=== PATIENT | male | born 1945 | race Caucasian/White ===

== ENCOUNTER 2020-05-04 12:31 | Inpatient (IN) | payer MEDICAID ==
[~2020-05-04] VITALS: Ht 170.2 cm; Wt 70.3 kg
[2020-05-04] VITALS (21 sets, daily range): BP systolic 141–211; BP diastolic 73–111
--- NOTE | 2020-05-04 12:42 | NUR ---
[place] FROM HOME TO ER BED 2. AAOX4. BREATHING RAPID, SOB. CAME INFOR SOB. SINCE YESTERDAY. PER PT, BREATHING IS MORE DIFFICULT WHEN HE IS LYING DOWN. PT IS A DIALYSIS PT. LAST DIALIZED ON MONDAY. PT WAS SUPPOSE TO HAVE ON TODAY BUT INSTEADY CALLED 911 BECAUSE OF HIS SOB. PT IS ON 2LPN VIA NC AND SATTING AT 95%. AWAITING MD FOR EVAL.
[2020-05-04 13:05] LABS: BASOPHILS # (AUTO) 0.1 /CMM (0.0-0.2); BASOPHILS % (AUTO) 0.9 % (0.0-2.0); EOSINOPHILS % (AUTO) 1.5 % (0.0-6.0); HEMATOCRIT 37 % (39-51); HEMOGLOBIN 12.1 g/dL (13.5-17.5); LYMPHOCYTES # (AUTO) 0.6 /CMM (0.8-4.8); LYMPHOCYTES % (AUTO) 9.4 % (20.0-44.0); MEAN CORPUSCULAR HGB CONC 33 g/dl (31.0-36.0); MEAN CORPUSCULAR VOLUME 93 fL (80-96); MONOCYTES # (AUTO) 0.8 /CMM (0.1-1.30); MONOCYTES % (AUTO) 11.1 % (2.0-12.0); NEUTROPHILS # (AUTO) 5.3 /CMM (1.8-8.9); NEUTROPHILS % (AUTO) 77.1 % (43.0-81.0); PLATELET COUNT (AUTO) 139 /CMM (150-450); RED BLOOD CELL COUNT(AUTO) 3.97 MIL/uL (4.5-6.0); WHITE BLOOD COUNT (AUTO) 6.9 K/uL (4.3-11.0)
[2020-05-04 13:17] LABS: CALCIUM, SERUM 10.1 mg/dL (8.5-10.1); CARBON DIOXIDE 24 mmol/L (21-32); CHLORIDE 102 mmol/L (98-107); GLUCOSE 115 mg/dL (74-106); POTASSIUM 5.4 mmol/L (3.5-5.1); SODIUM SERUM 138 mmol/L (136-145); UREA NITROGEN, BLOOD 66 mg/dL (7-18)
[2020-05-04 13:22] LABS: CREATININE 8.8 mg/dL (0.6-1.3)
[2020-05-04 13:29] LABS: ALANINE AMINOTRANSFERASE 13 U/L (12-78); ALBUMIN 3.8 g/dL (3.4-5.0); ALKALINE PHOSPHATASE 60 U/L (46-116); ASPARTATE AMINOTRANSFERASE 17 U/L (15-37); B-TYPE NATRIURETIC PEPTIDE 71615 PG/ML (0-125); BILIRUBIN,DIRECT 0.2 mg/dL (0.0-0.2); BILIRUBIN,TOTAL 0.7 mg/dL (0.2-1.0); TOTAL PROTEIN, SERUM 7.9 g/dL (6.4-8.2)
[2020-05-04] MEDS ORDERED: LOSA100T31 PO (13:50)
[2020-05-04] MEDS ORDERED: HYDR-3972 PO (13:50)
[2020-05-04] MEDS ORDERED: ATOR40TA PO (13:50)
[2020-05-04] MEDS ORDERED: AMLO10TA7 PO ×2 (13:50→15:08)
[2020-05-04] MEDS ORDERED: SEVE800T28 PO (13:50)
[2020-05-04] MEDS ORDERED: ASPI-1169 PO (13:50)
[2020-05-04] MEDS ORDERED: NTG 50 MG/D5W250 ML BOTTL 250 ML IV STA (14:36)
--- NOTE | 2020-05-04 14:53 | NUR ---
MOVE SHEET SUBMITTED AND CALLED FOR TELE BED.
[2020-05-04] MEDS ORDERED: SODIUM POLYSTYRENE SULFONATE 15 G/60 ML BOTTLE ONE ×2 (14:54→15:07)
[2020-05-04] MEDS ORDERED: INSULIN REGULAR, HUMAN 100 UNIT/ML 10 ML VIAL ONE (14:55)
[2020-05-04] MEDS ORDERED: DEXTROSE 50%-WATER 50 ML DISP.SYRIN ONE (14:55)
[2020-05-04] MEDS ORDERED: NTG 50 MG/D5W250 ML BOTTL 250 ML IV ONE (14:55)
[2020-05-04] MEDS ORDERED: LOSA1TAB39 PO (14:58)
[2020-05-04] MEDS ORDERED: KETO5DRO39 RIGHTEYE (14:58)
[2020-05-04] MEDS ORDERED: PRED5DRO16 OP (14:58)
[2020-05-04] MEDS ORDERED: METO25TA6 PO (14:58)
[2020-05-04] MEDS ORDERED: DEXTROSE 50%-WATER 50 ML DISP.SYRIN IVP ONE (15:00)
[2020-05-04] MEDS ORDERED: INSULIN REGULAR, HUMAN 100 UNIT/ML 10 ML VIAL IV ONE (15:00)
[2020-05-04] MEDS ORDERED: SODIUM POLYSTYRENE SULFONATE 15 G/60 ML BOTTLE PO ONE (15:00)
[2020-05-04] MEDS ORDERED: CINA60TA PO (15:08)
[2020-05-04] MEDS ORDERED: HYDR-4077 PO (15:08)
[2020-05-04] MEDS ORDERED: OMEP20TA5 PO (15:08)
[2020-05-04] MEDS ORDERED: FOLI0.8C PO (15:08)
--- NOTE | 2020-05-04 15:11 | NUR ---
MIAHOneida HUDSON [phone]
--- NOTE | 2020-05-04 15:15 | NUR ---
[facility] CALLED ITS DR. SKAGGS
--- NOTE | 2020-05-04 15:42 | NUR ---
COVID SWAB DONE AND SENT TO LAB
--- NOTE | 2020-05-04 15:55 | NUR ---
CALLED [facility] AGAIN DR. HURT
--- NOTE | 2020-05-04 16:09 | NUR ---
LAB CALLED COVID (-) NEG.
--- NOTE | 2020-05-04 16:34 | NUR ---
Report given to Kaleb RN for ICU admission
--- NOTE | 2020-05-04 17:05 | NUR ---
Transferred to ICU via [facility]
--- NOTE | 2020-05-04 17:10 | NUR ---
ICU/RN: RECEIVED PT FROM ER. PT ABLE TO WALK TO BED. ALERT, AWAKE, FOLLOWS COMMANDS. ON 2LITERS NASAL CANULA, NO ACUTE DISTRESS NOTED. SINUS ON TELE. NITROGLYCERINE DRIP INFUSING AT 10MCG TO MAINTAIN SBP<180. PIVS PATENT AND INTACT, NO S/S OF INFECTION OR INFILTRATION NOTED. CONSENT FOR HD IN CHART, PT SCHEDULED FOR HD TODAY. ALL NEEDS WILL BE ATTENDED TO, SAFETY MEASURES TAKEN, BED IN LOW POSITION, SIDE RAILS UP, CALL LIGHT WITHIN REACH. WILL CONTINUE TO MONITOR.
[2020-05-04] MEDS ORDERED: ACETAMINOPHEN 325 MG TABLET PO PRN (18:00)
[2020-05-04] MEDS ORDERED: ZOLPIDEM TARTRATE 5 MG TABLET PO PRN (18:00)
[2020-05-04] MEDS ORDERED: ONDANSETRON HCL/PF 4 MG/2 ML VIAL IVP PRN (18:00)
[2020-05-04] MEDS ORDERED: hydrALAZINE HCL 50 MG TABLET PO SCH (18:00)
[2020-05-04] MEDS ORDERED: Z GUARD REMEDY 2 OZ OINT TP PRN (18:00)
[2020-05-04] MEDS ORDERED: HYDROCODONE/APAP 5/325MG 1 EACH TABLET PO PRN ×2 (18:00)
[2020-05-04] MEDS: SEVELAMER CARBONATE 800 MG TABLET PO SCH (18:26)
[2020-05-04] MEDS: AMLODIPINE BESYLATE 10 MG TABLET PO SCH (18:27)
[2020-05-04] MEDS ORDERED: NITROGLYCERIN 100 MG in IV D5W 230 ML IV PRN (18:30)
[2020-05-04] MEDS ORDERED: NITROGLYCERIN IV PRN (19:00)
[2020-05-04] MEDS ORDERED: D5W IV PRN (19:00)
--- NOTE | 2020-05-04 19:26 | NUR ---
ICU/RN ENDING NOTES,AM REPORT ENDORSED TO NIGHT NURSE FOR BIGG. HD ONGOING. UNABLE TO OBTAIN NIBP, MANUALLY DONE. PT ALERT, NO ACUTE DISTRESS NOTED. SINUS ON TELE. ALL NEEDS ATTENDED TO, SAFETY MEASURES TAKEN, BED IN LOW POSITION SIDE RAILS UP, CALL LIGHT WITHIN REACH. WILL CONTINUE CARE.
--- NOTE | 2020-05-04 19:30 | NUR ---
SUPERIOR COURT JUSTICE INITIAL SHIFT NOTES RECEIVED PATIENT IN BED, AWAKE, A/O X4, ABLE TO VERBALIZE NEEDS. PATIENT CURRENTLY UNDERGOING HD TREATMENT. ON O2 VIA NASAL CANNULA @ 2LPM, TOLERATING WELL. PATIENT STATES "IM BREATHING A LOT BETTER NOW. STILL NOT GOOD, BUT BETTER." BEDSIDE [place] MAOR[place] READS SINUS RHYTHM WITH BBB AND INVERTED TWAVE, HR 82 BPM AT THIS TIME. RIGHT FOREARM #20G PATENT AND INTACT, RUNNING NITROGLYCERIN GTT, CURRENTLY @ 15MCG/MIN, WILL MONITOR AND TITRATE ACCORDINGLY. RIGHT CHEST WALL STEPHANIE CATH DRESSING CLEAN AND DRY, NO BLEEDING NOTED AT SITE. ELOY NOTED WITH AV FISTULA, WITH +BRUIT, +THRILL, BUT NOT YET MATURED PER REPORT FROM DAY NURSE, RIGHT STEPHANIE CATHETER CURRENTLY IN USE FOR HD. NO ISOLATION, COVID NEGATIVE. HOB KEPT ELEVATED IN SEMIFOWLER'S. WILL MONITOR CLOSELY
--- NOTE | 2020-05-04 20:00 | NUR ---
COMPUTER CUSTOMER SUPPORT SPECIALIST NOTES HD COMPLETED, 3LITERS REMOVED PER HD NURSE.
[2020-05-04] MEDS: ATORVASTATIN 40 MG TABLET PO SCH (21:46)
[2020-05-04] MEDS: CINACALCET HCL 30 MG TABLET PO SCH (21:46)
[2020-05-04] MEDS: prednisoLONE ACET 1% OPHT DROP 5 ML BOTTLE OP SCH (21:47)
--- NOTE | 2020-05-04 22:00 | NUR ---
AWNING MAKER NOTES NITROGLYCERIN DRIP TITRATED OFF, WILL MONITOR VITALS CLOSELY .
[2020-05-05] VITALS (34 sets, daily range): BP systolic 95–206; BP diastolic 65–102
--- NOTE | 2020-05-05 02:08 | NUR ---
LUNCH TRUCK DRIVER NOTES BP 206/96, NITROGLYCERIN DRIP RESUMED/RESTARTED @ 5MCG/MIN, GOAL TO KEEP SBP < 180
[2020-05-05 04:09] LABS: BASOPHILS # (AUTO) 0.1 /CMM (0.0-0.2); EOSINOPHILS % (AUTO) 3.8 % (0.0-6.0); HEMATOCRIT 36 % (39-51); HEMOGLOBIN 12.1 g/dL (13.5-17.5); LYMPHOCYTES # (AUTO) 1.2 /CMM (0.8-4.8); LYMPHOCYTES % (AUTO) 18.2 % (20.0-44.0); MEAN CORPUSCULAR HGB CONC 33 g/dl (31.0-36.0); MEAN CORPUSCULAR VOLUME 92 fL (80-96); MONOCYTES # (AUTO) 0.9 /CMM (0.1-1.30); MONOCYTES % (AUTO) 14.1 % (2.0-12.0); NEUTROPHILS % (AUTO) 62.9 % (43.0-81.0); PLATELET COUNT (AUTO) 138 /CMM (150-450); RED BLOOD CELL COUNT(AUTO) 3.96 MIL/uL (4.5-6.0); WHITE BLOOD COUNT (AUTO) 6.4 K/uL (4.3-11.0)
[2020-05-05 04:31] LABS: CALCIUM, SERUM 9.8 mg/dL (8.5-10.1); CARBON DIOXIDE 26 mmol/L (21-32); CHLORIDE 103 mmol/L (98-107); CREATININE 7.4 mg/dL (0.6-1.3); GLUCOSE 86 mg/dL (74-106); MAGNESIUM 2.9 mg/dL (1.8-2.4); POTASSIUM 4.5 mmol/L (3.5-5.1); SODIUM SERUM 141 mmol/L (136-145); UREA NITROGEN, BLOOD 54 mg/dL (7-18)
[2020-05-05 04:32] LABS: CHOLESTEROL 132 mg/dL (<200); HDL CHOLESTEROL 39 mg/dL (40-60); LDL 80 mg/dL (0-99); THYROID STIMULATING HORMONE 1.089 uIU/mL (0.358-3.74); TRIGLYCERIDES 82 mg/dL (30-150)
[2020-05-05 05:34] LABS: B-TYPE NATRIURETIC PEPTIDE 71062 PG/ML (0-125)
--- NOTE | 2020-05-05 07:00 | NUR ---
TAPE FOLDING MACHINE OPERATOR CLOSING NOTES PATIENT RESTING IN BED, APPEARS COMFORTABLE, DENIES ANY PAIN OR DISCOMFORT, TOLERATING O2 VIA NC @ 2LPM. REMAINS ON NITROGLYCERIN DRIP, TITRATED UP TO 65 MCG/MIN. ALL DUE MEDS ADMINISTERED ORDERED, ALL NEEDS MET AT THIS TIME. WILL ENDORSE THE PATIENT TO THE AM SHIFT NURSE FOR BIGG
[2020-05-05] MEDS: PANTOPRAZOLE 40 MG TABLET.DR PO SCH (08:44)
[2020-05-05] MEDS: ASPIRIN 81 MG TAB.CHEW PO SCH (08:44)
[2020-05-05] MEDS: SEVELAMER CARBONATE 800 MG TABLET PO SCH ×3 (08:44→18:09)
[2020-05-05] MEDS: prednisoLONE ACET 1% OPHT DROP 5 ML BOTTLE OP SCH ×4 (08:45→20:38)
[2020-05-05] MEDS: hydrALAZINE HCL 50 MG TABLET PO SCH ×3 (08:47→20:49)
[2020-05-05] MEDS: AMLODIPINE BESYLATE 10 MG TABLET PO SCH (08:47)
[2020-05-05] MEDS: HEPARIN SODIUM, PORCINE 5000 UNITS/1 ML VIAL SQ SCH ×2 (09:53→20:36)
[2020-05-05] MEDS: NITROGLYCERIN 30 GM TUBE TP SCH ×2 (12:00→20:38)
--- NOTE | 2020-05-05 15:20 | NUR ---
rn notes patient transferred from icu, report received by icu nurse Jose RN a/o x3 Spanish speaker. patient tele monitor on SR 82, pt on 2L of oxygen via n/c saturating at 97& at this time, pt on renal diet, pt has R AC 20', R forearm 20', R chest wall Juancho cath, ELOY AV fistula new not matured at this time, pt noted with right upper extremity scabs, v/s taken: Bp 127/87, Hr 80, RR 19, Temp 97.8, O2 97% n/c, bed locked and in lowest position, call light within reach and functioning.
--- NOTE | 2020-05-05 18:34 | NUR ---
LICENSED SALES ASSISTANT CLOSING NOTE PT IS IN BED, AWAKE, ALERT AND ORIENTED X3, PT ON 2L OF OXYGEN VIA N/C SATURATING AT 97%, NO DISTRESS NOTED AT THIS TIME, PT HAS A ELOY FISTULA, PT'S V/S WITHIN NORMAL RANGE, PT ON TELE MONITORING WITH SR NOTED AT THIS TIME, CALL LIGHT WITHIN REACH AND FUNCTIONING, BED LOCKED AND IN LOWEST POSITION, PT HAS CHEST X-RAY IN AM TOMORROW, WILL ENDORSE TO 7PM SHIFT NURSE TO CONTINUE PLAN OF CARE
[2020-05-05] MEDS: CINACALCET HCL 30 MG TABLET PO SCH (21:02)
[2020-05-05] MEDS: ATORVASTATIN 40 MG TABLET PO SCH (21:02)
[2020-05-06] VITALS: BP 139/73
[2020-05-06 04:00] VITALS: BP 123/63
[2020-05-06] MEDS: hydrALAZINE HCL 50 MG TABLET PO SCH ×3 (05:18→20:36)
--- NOTE | 2020-05-06 07:10 | NUR ---
RN OPENING NOTE: Received patient in bed and asleep. Appears comfortable and relaxed. On cont o2 via NC @ 3lpm being tolerated well. No SOB and not in respiratory distress. Tele monitor showing SR in the 90s. No pain noted on patient. Iv sites clean, dry, patent and intact. ELOY AV fistula intact and secure, RAC perma-cath noted. Call light in reach, bed locked, low and at semi-bey's position. Side rails up x3. Safety ensured and observed. Will continue to monitor.
[2020-05-06] MEDS: PANTOPRAZOLE 40 MG TABLET.DR PO SCH (07:46)
[2020-05-06] MEDS: SEVELAMER CARBONATE 800 MG TABLET PO SCH ×3 (07:46→18:00)
[2020-05-06 08:00] VITALS: BP_SYST 120; BP_SYST 145; BP_DIAS 67; BP_DIAS 69
--- NOTE | 2020-05-06 08:15 | NUR ---
RN Will check the next dialysis appointment for patient prior to doing the CT CHEST W/IV CONTRAST. Please call radiology at ext. [phone] when ready.
[2020-05-06] MEDS: prednisoLONE ACET 1% OPHT DROP 5 ML BOTTLE OP SCH ×4 (08:40→21:17)
[2020-05-06] MEDS: ASPIRIN 81 MG TAB.CHEW PO SCH (08:40)
[2020-05-06] MEDS: AMLODIPINE BESYLATE 10 MG TABLET PO SCH (08:40)
[2020-05-06] MEDS: NITROGLYCERIN 30 GM TUBE TP SCH ×2 (08:41→21:17)
[2020-05-06] MEDS: HEPARIN SODIUM, PORCINE 5000 UNITS/1 ML VIAL SQ SCH ×2 (08:44→21:06)
[2020-05-06 09:35] LABS: ALANINE AMINOTRANSFERASE 10 U/L (12-78); ALBUMIN 3.4 g/dL (3.4-5.0); ALKALINE PHOSPHATASE 43 U/L (46-116); ASPARTATE AMINOTRANSFERASE 14 U/L (15-37); BILIRUBIN,TOTAL 0.8 mg/dL (0.2-1.0); CALCIUM, SERUM 9.4 mg/dL (8.5-10.1); CARBON DIOXIDE 24 mmol/L (21-32); CHLORIDE 104 mmol/L (98-107); CREATININE 7.3 mg/dL (0.6-1.3); GLUCOSE 87 mg/dL (74-106); MAGNESIUM 2.6 mg/dL (1.8-2.4); PHOSPHORUS 5.6 mg/dL (2.5-4.9); POTASSIUM 3.8 mmol/L (3.5-5.1); SODIUM SERUM 142 mmol/L (136-145); TOTAL PROTEIN, SERUM 7.2 g/dL (6.4-8.2); UREA NITROGEN, BLOOD 48 mg/dL (7-18)
--- NOTE | 2020-05-06 09:40 | NUR ---
RN NOTE: Consent form for CT chest with contrast as well as dye administration consent was obtained from patient. Forms were signed.
[2020-05-06 09:43] LABS: BASOPHILS % (AUTO) 0.6 % (0.0-2.0); EOSINOPHILS % (AUTO) 2.1 % (0.0-6.0); HEMATOCRIT 34 % (39-51); LYMPHOCYTES # (AUTO) 0.7 /CMM (0.8-4.8); LYMPHOCYTES % (AUTO) 11.5 % (20.0-44.0); MEAN CORPUSCULAR HGB CONC 32 g/dl (31.0-36.0); MEAN CORPUSCULAR VOLUME 92 fL (80-96); MONOCYTES # (AUTO) 0.8 /CMM (0.1-1.30); MONOCYTES % (AUTO) 14.5 % (2.0-12.0); NEUTROPHILS # (AUTO) 4.1 /CMM (1.8-8.9); NEUTROPHILS % (AUTO) 71.3 % (43.0-81.0); PLATELET COUNT (AUTO) 118 /CMM (150-450); RED BLOOD CELL COUNT(AUTO) 3.72 MIL/uL (4.5-6.0); WHITE BLOOD COUNT (AUTO) 5.8 K/uL (4.3-11.0)
[2020-05-06 09:46] LABS: IRON, SERUM 26 ug/dl (50-175); TOTAL IRON BINDING CAPACITY 189 ug/dl (250-450)
--- NOTE | 2020-05-06 10:02 | NUR ---
WAITING FOR CONSENT TO BE DONE BY RN @1002 YW
[2020-05-06 12:12] LABS: HEPATITIS Be AB Negative (Negative)
[2020-05-06 13:35] LABS: FERRITIN 815 ng/mL (8-388)
[2020-05-06 16:00] VITALS: BP 140/78
--- NOTE | 2020-05-06 19:27 | NUR ---
RN CLOSING NOTE: No acute changes noted on shift. Patient is in bed and asleep. Appears comfortable and relaxed. On cont o2 via NC @ 3lpm being tolerated well. No SOB and not in respiratory distress. No pain noted on patient. Iv sites clean, dry, patent and intact. ELOY AV fistula intact and secure, RAC perma-cath noted. CT chest with contrast done today and HD done today with 2300 output. Call light in reach, bed locked, low and at semi-bey's position. Side rails up x3. Safety ensured and observed. Endorsed to AMBER Peguero for BIGG.
[2020-05-06 20:00] VITALS: BP 116/84
--- NOTE | 2020-05-06 20:00 | NUR ---
ms antonio initial notes received report from am nurse and saw pt sitting in bed eating some of his foods. denies any pain or any discomfort. aware where he at and how to used the call light system .kept him warm and comfortable at all times. place call light at reach.
[2020-05-06] MEDS: CINACALCET HCL 30 MG TABLET PO SCH (21:13)
[2020-05-06] MEDS: ATORVASTATIN 40 MG TABLET PO SCH (21:13)
--- NOTE | 2020-05-07 02:49 | NUR ---
ms sourcing associate notes Pt sleeping comfortably in bed without any distress noted. respiration even and non-labored. kept him warm and comfortable at all times. place call light at reach.
[2020-05-07] MEDS: hydrALAZINE HCL 50 MG TABLET PO SCH ×3 (05:22→20:26)
--- NOTE | 2020-05-07 07:02 | NUR ---
MS WALLPAPER INSPECTOR CLOSING NOTES PT BACK TO SLEEP AFTER I GAVE HIS MORNING MEDS. STABLE SIMONA THE NIGHT AND ALL DUE MEDS GIVEN ALL NEEDS MET. SLEPT WELL. NO SIGNS OF ANY DISTRESS NOTED.DENIES ANY PAIN OR ANY DISCOMFORT. KEPT HIM WARM AND COMFORTABLE AT ALL TIMES. ENDORSE TO AM NURSE FOR CONTINUITY OF CARE.
[2020-05-07] MEDS: PANTOPRAZOLE 40 MG TABLET.DR PO SCH (07:33)
--- NOTE | 2020-05-07 07:50 | NUR ---
RN OPENING NOTE Patient is sitting up in bed, A/O x3, showing no signs of acute distress or SOB, saturating >95% on 2L NC. IV lines in the RFA#20g, RAC#20g, clean and intact s/l. RUC perma-cath noted as well as ELOY AV fistula. S/P HD on 04/27 with 2000cc out. Patient has no complaints at this time. Bed is in lowest position, side rails x3 in upright position, call light is within reach, fall safety and aspiration precautions enforced. Will continue with plan of care.
[2020-05-07 08:00] VITALS: BP 116/59
[2020-05-07] MEDS: NITROGLYCERIN 30 GM TUBE TP SCH ×2 (08:11→21:00)
[2020-05-07] MEDS: AMLODIPINE BESYLATE 10 MG TABLET PO SCH (08:12)
[2020-05-07] MEDS: ASPIRIN 81 MG TAB.CHEW PO SCH (08:12)
[2020-05-07] MEDS: SEVELAMER CARBONATE 800 MG TABLET PO SCH ×3 (08:12→17:33)
[2020-05-07] MEDS: HEPARIN SODIUM, PORCINE 5000 UNITS/1 ML VIAL SQ SCH ×2 (08:13→20:29)
[2020-05-07] MEDS: prednisoLONE ACET 1% OPHT DROP 5 ML BOTTLE OP SCH ×4 (08:20→20:26)
[2020-05-07] MEDS ORDERED: HYDR-4077 PO (15:52)
[2020-05-07 16:00] VITALS: BP 118/70
--- NOTE | 2020-05-07 18:30 | NUR ---
RN CLOSING NOTE Patient is sitting up in bed, A/O x3, showing no signs of acute distress or SOB, saturating >95% on 2L NC. IV lines in the right hand #20g, RAC#20g, clean and intact s/l. RUC perma-cath noted as well as ELOY AV fistula. S/P HD on 05/06 with 2000cc out. All patient needs met, all due medications given, patient kept clean and dry throughout the shift. Bed is in lowest position, side rails x3 in upright position, call light is within reach, fall safety and aspiration precautions enforced. Will endorse to shift boss.
--- NOTE | 2020-05-07 19:50 | NUR ---
MS RN OPENING NOTES Patient received resting in bed a/o x 3. On 2L of O2 with breathing even and unlabored, no sob noted. No signs of acute distress. No complaints of pain or discomfort. IV located on R AC #20, R hand #20, RUC permacath, and ELOY AV fistula noted. Safety precautions in place with bed in lowest position, call light within reach, breaks on, side rails up. Will continue to monitor throughout the night.
[2020-05-07 20:00] VITALS: BP 130/61
[2020-05-07 20:51] VITALS: BP 130/61
[2020-05-07] MEDS: ATORVASTATIN 40 MG TABLET PO SCH (21:46)
[2020-05-07] MEDS: CINACALCET HCL 30 MG TABLET PO SCH (21:46)
[2020-05-08] MEDS: hydrALAZINE HCL 50 MG TABLET PO SCH ×2 (04:48→12:43)
--- NOTE | 2020-05-08 06:44 | NUR ---
MS RN CLOSING NOTES Patient resting in bed a/o x 3. On 2L of O2 with breathing even and unlabored, no sob noted. No signs of acute distress. No complaints of pain or discomfort. IV located on R AC #20, R hand #20, RUC permacath, and ELOY AV fistula noted. Safety precautions in place with bed in lowest position, call light within reach, breaks on, side rails up. All needs attended to. Patient kept clean and dry. Will endorse to oncoming shift about elder.
[2020-05-08] MEDS: PANTOPRAZOLE 40 MG TABLET.DR PO SCH (07:30)
--- NOTE | 2020-05-08 07:30 | NUR ---
RN MS NOTES PT IN BED, ASLEEP, EASILY AROUSABLE, ALERT AND ORIENTED, DENIES PAIN, RESPIRATIONS NORMAL, CALL LIGHT WITHIN REACH.
[2020-05-08 07:41] LABS: CALCIUM, SERUM 8.9 mg/dL (8.5-10.1); CARBON DIOXIDE 26 mmol/L (21-32); CHLORIDE 98 mmol/L (98-107); GLUCOSE 106 mg/dL (74-106); MAGNESIUM 2.6 mg/dL (1.8-2.4); PHOSPHORUS 5.5 mg/dL (2.5-4.9); POTASSIUM 4.7 mmol/L (3.5-5.1); SODIUM SERUM 134 mmol/L (136-145); UREA NITROGEN, BLOOD 56 mg/dL (7-18)
[2020-05-08 07:45] LABS: CREATININE 8.6 mg/dL (0.6-1.3)
[2020-05-08 07:48] LABS: BASOPHILS % (AUTO) 0.9 % (0.0-2.0); EOSINOPHILS % (AUTO) 5.8 % (0.0-6.0); HEMATOCRIT 32 % (39-51); HEMOGLOBIN 10.5 g/dL (13.5-17.5); LYMPHOCYTES % (AUTO) 20.7 % (20.0-44.0); MEAN CORPUSCULAR HGB CONC 33 g/dl (31.0-36.0); MEAN CORPUSCULAR VOLUME 91 fL (80-96); MONOCYTES # (AUTO) 0.8 /CMM (0.1-1.30); MONOCYTES % (AUTO) 15.9 % (2.0-12.0); NEUTROPHILS # (AUTO) 2.8 /CMM (1.8-8.9); NEUTROPHILS % (AUTO) 56.7 % (43.0-81.0); PLATELET COUNT (AUTO) 120 /CMM (150-450); RED BLOOD CELL COUNT(AUTO) 3.51 MIL/uL (4.5-6.0); WHITE BLOOD COUNT (AUTO) 4.9 K/uL (4.3-11.0)
[2020-05-08] MEDS: SEVELAMER CARBONATE 800 MG TABLET PO SCH ×2 (08:00→12:26)
[2020-05-08 08:21] VITALS: BP 123/66
[2020-05-08] MEDS: prednisoLONE ACET 1% OPHT DROP 5 ML BOTTLE OP SCH ×2 (09:00→12:34)
[2020-05-08] MEDS: ASPIRIN 81 MG TAB.CHEW PO SCH ×2 (09:00→12:26)
[2020-05-08] MEDS: NITROGLYCERIN 30 GM TUBE TP SCH (09:00)
[2020-05-08] MEDS: AMLODIPINE BESYLATE 10 MG TABLET PO SCH (09:00)
--- NOTE | 2020-05-08 09:00 | NUR ---
RN MS NOTES NITROL NOT GIVEN, PT WITH SCHEDULED CTCA AND HD TODAY.
--- NOTE | 2020-05-08 09:00 | NUR ---
RN MS NOTES PT REFUSED AM MEDS, STATED THAT HE WOULD LIKE TO SLEEP FOR NOW.
--- NOTE | 2020-05-08 09:47 | NUR ---
WOUND CARE CONSULT: PT REFUSED SKIN ASSESSMENT. PT NOTED TO BE INDEPENDENT WITH BED MOBILITY AND IS AMBULATORY WITH ASSISTANCE PER NURSING STAFF. WILL SEE PRN.
[2020-05-08] MEDS ORDERED: METOPROLOL TARTRATE INJ 5 MG/5 ML AMPUL ONE (10:57)
[2020-05-08] MEDS ORDERED: NITROGLYCERIN 0.4 MG/TAB BOTTLE ONE (10:57)
[2020-05-08] MEDS ORDERED: NITROGLYCERIN 0.4 MG/TAB BOTTLE SL ONE (11:00)
[2020-05-08] MEDS ORDERED: METOPROLOL TARTRATE INJ 5 MG/5 ML AMPUL IVP PRN (11:00)
--- NOTE | 2020-05-08 11:34 | NUR ---
AMBER MS NOTES PT BACK FROM [facility] VIA WHEELCHAIR, TOLERATED PROCEDURE WELL.
[2020-05-08] MEDS: HEPARIN SODIUM, PORCINE 5000 UNITS/1 ML VIAL SQ SCH (12:32)
[2020-05-08 12:43] VITALS: BP 116/62
--- NOTE | 2020-05-08 16:00 | NUR ---
RN MS NOTES PT COMPLETED DIALYSIS OUTPUT OF 2700ML AND TOLERATED WELL. NO BLEEDING NOTED TO CATHETER RIGHT CHEST.
--- NOTE | 2020-05-08 17:15 | NUR ---
MATHEMATICAL STATISTICIAN NOTE PT ALERT AND RESPONSIVE WITH NO COMPLAINT OF PAIN OR DISCOMFORT. RESPIRATION IS EVEN AND EASY WITH NO SOB. DISCHARGE ORDERS RECEIVED. MEDICATION INSTRUCTIONS PROVIDED TO PATIENT AND ABLE TO VERBALIZE UNDERSTANDING. BELONGINGS CHECKED, AND ASSISTED TO HOSPITAL LOBBY VIA W/C. PICKED UP BY FAMILY MEMBERS, AND LEFT VIA PRIVATE CAR IN STABLE CONDITION.
== END 2020-05-08 17:18 | disposition home or self-care (01) | DRG 199 ==
LOC: ER 12:35 → ICU 16:13 → TELE 05-05 15:42 → MED 05-06 10:28
PROVIDERS: ATTEND Nurse Practitioner Acute Care
PROC: 5A1D70Z Performance of Urinary Filtration, Intermittent, Less than 6 Hours Per Day (ICD-10-PCS; principal; 2020-05-04)
DX: I16.1 Hypertensive emergency (principal); I12.0 Hypertensive chronic kidney disease with stage 5 chronic kidney disease or end stage renal disease; I21.A1 Myocardial infarction type 2; D69.6 Thrombocytopenia, unspecified; J96.01 Acute respiratory failure with hypoxia; N18.6 End stage renal disease; D64.9 Anemia, unspecified; E78.5 Hyperlipidemia, unspecified; E87.5 Hyperkalemia; I13.2 Hypertensive heart and chronic kidney disease with heart failure and with stage 5 chronic kidney disease, or end stage renal disease; I50.33 Acute on chronic diastolic (congestive) heart failure; I25.10 Atherosclerotic heart disease of native coronary artery without angina pectoris; I77.810 Thoracic aortic ectasia; K21.9 Gastro-esophageal reflux disease without esophagitis; Z79.82 Long term (current) use of aspirin; Z87.891 Personal history of nicotine dependence; Z99.2 Dependence on renal dialysis; Z95.1 Presence of aortocoronary bypass graft; N25.0 Renal osteodystrophy; R22.2 Localized swelling, mass and lump, trunk; Z91.19 Patient's noncompliance with other medical treatment and regimen
CPT/HCPCS: 36415; 71045-TC; 71260-TC; 75574; 80048-TC; 80053-TC; 80061-TC; 80076-TC; 82728-TC; 83540-TC; 83735-TC; 83880; 84100-TC; 84443-TC; 84484-TC; 85025-TC; 85730-TC; 86706; 86707; 86803; 87081-TC; 87340; 87350; 90935-TC; 93307-TC; 97116-TC; 97530-TC; G0378; J1644; J1815; J3490; J7060